=== PATIENT | female | born 1950 | race Caucasian/White ===

== ENCOUNTER 2024-09-02 02:55 | Outpatient (CLI) | payer MEDICARE, OTHER, SELFPAY ==
--- NOTE | 2024-09-02 | DI.RAD_ITS ---
Exam(s) RF MODIFIED SPEECH BA SWALLOW TECHNIQUE: Modified barium swallow was performed in conjunction with speech pathology. CONTRAST MATERIAL: Oral barium contrast was administered. COMPARISON: RF XR BARIUM SWALLOW AC (D) from 07/19/2024 FINDINGS: Note that this is not a dedicated esophagram, distal esophagus not evaluated. Aspiration and penetration were identified during the examination with thin barium liquid. There was no aspiration or penetration with thick barium liquid, barium pudding or barium coated cookie. [facility] . . . IMPRESSION: Aspiration was identified with thin barium liquid during the examination. RADIATION DOSE DELIVERED: agustin Burden=7.36 mGy
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
[2024-09-02] MEDS: Barium Sulfate 81% w/w for Oral Suspension 148 GM BTL PO (09:46)
[2024-09-02] MEDS: Barium Sulfate 40% W/V 240 ML BTL PO (09:48)
[2024-09-02] MEDS: Barium Sulfate Oral Paste 40% W/V 230 ML TUBE PO (09:49)
== END 2024-09-02 03:15 ==
PROVIDERS: PCP Physician Assistant; Visit Provider Student in an Organized Health Care Education/Training Program
DX: R13.13 Dysphagia, pharyngeal phase (principal)
CPT/HCPCS: 92526; 74221